=== PATIENT | male | born 1990 | race Caucasian/White ===

== ENCOUNTER 2018-09-25 05:59 | Day surgery (SDC) | payer BC ==
--- NOTE | 2018-09-24 14:59 | PCM.PREANE ---
Preanesthetic Assessment - Anesthesia/Transfusion/Family Hx Anesthesia History: Prior Anesthesia Without Reaction Family History of Anesthesia Reaction: No Transfusion History: No Prior Transfusion(s) Intubation History: Unknown - Review of Systems General: No Symptoms Pulmonary: No Symptoms (Chewing tobacco on occasion/ETOH on occasion/None smoker ) Cardiovascular: No Symptoms Gastrointestinal: No Symptoms Neurological: No Symptoms Other: Reports: None - Physical Assessment NPO Status Date: 09/24/18 NPO Status Time: 21:00 Pulse: 91 O2 Sat by Pulse Oximetry: 96 Respiratory Rate: 16 Blood Pressure: 140/94 Temperature: 36.3 C Height: 1.73 m Weight: 105 kg ASA Class: 2 Mental Status: Alert & Oriented x3 Airway Class: Mallampati = 3 Dentition: Reports: Normal Dentition, Caries Thyro-Mental Finger Breadths: 3 Mouth Opening Finger Breadths: 3 ROM/Head Extension: Full Lungs: Clear to Auscultation, Normal Respiratory Effort Cardiovascular: Regular Rate, Regular Rhythm, No Murmurs - Lab Values: MRSA negative. All labs reviewed and noted and within acceptable ranges to proceed with scheduled procedure. - Allergies Allergies/Adverse Reactions: Allergies Allergy/AdvReac Type Severity Reaction Status Date / Time No Known Allergies Allergy Verified 09/24/18 13:35 - Anesthesia Plan Pre-Op Medication Ordered: None - Acknowledgements Anesthesia Type Planned: General Anesthesia (Right ISB under US guidance for post operative pain control requested by Dr. Bolanos.) Pt an Appropriate Candidate for the Planned Anesthesia: Yes Alternatives and Risks of Anesthesia Discussed w Pt/Guardian: Yes Pt/Guardian Understands and Agrees with Anesthesia Plan: Yes PreAnesthesia Questionnaire HEENT History: Reports: Other (See Below) Other HEENT History: oral surgery Cardiovascular History: Reports: None Respiratory History: Reports: None Gastrointestinal History: Reports: None Genitourinary History: Reports: None WIND OPERATIONS MANAGER History: Reports: None Musculoskeletal History: Reports: Other (See Below) Other Musculoskeletal History: lumbar strain, right index finger skin graft Neurological History: Reports: None Psychiatric History: Reports: None Endocrine/Metabolic History: Reports: None Hematologic History: Reports: None Immunologic History: Reports: None Oncologic (Cancer) History: Reports: None Dermatologic History: Reports: Other (See Below) Other Dermatologic History: skin transplantation - Past Surgical History Head Surgeries/Procedures: Reports: None Cardiovascular Surgical History: Reports: None Respiratory Surgical History: Reports: None GI Surgical History: Reports: None Female Surgical History: Reports: None Male Surgical History: Reports: None Endocrine Surgical History: Reports: None Neurological Surgical History: Reports: None Musculoskeletal Surgical History: Reports: None Oncologic Surgical History: Reports: None - SUBSTANCE USE Smoking Status *Q: Current Every Day Smoker Tobacco Use Within Last Twelve Months: Snuff/Dip Recreational Drug Use History: No - HOME MEDS Home Medications: Home Meds Acetaminophen/HYDROcodone [Crook 325-5 MG] 1 - 2 tab PO Q6H PRN #40 tablet 09/25 [Rx] Cyclobenzaprine [Flexeril] 10 mg PO Q8H PRN #40 tab 09/25/18 [Rx] - CURRENT (IN HOUSE) MEDS Current Meds: Current Medications Epinephrine HCl (Adrenalin) 3 mg .XX ONETIME ONE Stop: 09/25/18 08:01 Lactated Ringer's (Ringers, Lactated) 1,000 mls @ 125 mls/hr IV ASDIRECTED LUIS Stop: 09/25/18 23:00 Lidocaine/Sodium Bicarbonate (Buffered Lidocaine 1% In Ns 8.4%) 0.25 ml IDERM ONETIME PRN PRN Reason: Prior to IV Start Stop: 09/25/18 18:00 Sodium Chloride (Saline Flush) 10 ml FLUSH ASDIRECTED PRN PRN Reason: Keep Vein Open Stop: 09/25/18 18:00
[~2018-09-25 05:59] MED LIST: EPINEPHrine 1 MG/ML SDV ONE; Lidocaine 1% 4 ML ONE; Ropivacaine 0.5% 5 MG/ML 30 ML SDV ONE
[2018-09-25] MEDS ORDERED: Ketorolac 30 MG/ML SDV ONE (06:18)
[2018-09-25] MEDS ORDERED: Rocuronium 50 MG/5 ML Vial ONE (06:18)
[2018-09-25] MEDS ORDERED: Dexamethasone 4 MG/ML 5 ML MDV ONE (06:18)
[2018-09-25] MEDS ORDERED: Ondansetron 4 MG/2 ML SDV ONE (06:18)
[2018-09-25] MEDS ORDERED: Propofol 200 MG/20 ML SDV ONE ×2 (06:18→07:30)
[2018-09-25] MEDS ORDERED: Lactated Ringers 1,000 ML ONE (06:18)
[2018-09-25] MEDS ORDERED: Lidocaine 1% 6 ML ONE (06:18)
[2018-09-25] MEDS ORDERED: ceFAZolin 1 GM Vial ONE (06:18)
[2018-09-25] MEDS ORDERED: Midazolam 1 MG/ML 2 ML SDV ONE (06:19)
[2018-09-25] MEDS ORDERED: fentaNYL 250 MCG/5 ML SDV ONE (06:19)
[2018-09-25] MEDS ORDERED: Albuterol 0.083% 2.5 MG/3 ML Neb Soln NEB PRN ×2 (06:44→07:54)
[2018-09-25] MEDS ORDERED: Lactated Ringers 1,000 ML IV SCH (07:00)
[2018-09-25] MEDS ORDERED: Lidocaine 1%/Sod Bicarbonate in NS 8.4% 1 ML Syringe IDERM PRN (07:00)
[2018-09-25] MEDS ORDERED: Sodium Chloride 0.9% 10 ML Syringe FLUSH PRN (07:00)
--- NOTE | 2018-09-25 07:15 | PCM.SN ---
- Free Text/Narrative Note: Anesthesia Note: (Right Interscalene Block Note) Date: 09/25/2018 Time Out: 644 Start: 644 Stop: 705 Surgical Procedure: Right SVA with biceps tenodesis Diagnosis Right shoulder SLAP tear Current Procedure: Right interscalene block under US guidance for postoperative pain control requested by Dr. Bolanos. Patient chart reviewed, risk/benefits discussed with patient, consent obtained. Patient positioned supine, monitors/alarms on, oxygen placed via nasal cannula at 2 LPM. IV sedation administered: Versed 2mg IV, Fentanyl 50mcg IV given in prior to block placement. Right shoulder prepped with two chloropreps. Sterile drapes placed with aseptic technique noted. Under US guidance, right subclavian artery visualized along with the right brachial plexus. Plexus followed up to C6 cricoid level, and area localized with 2mls of 1% lidocaine. 22gauge 2 inch stimiplex needle advanced under US with 0.6mV with stimulation of biceps noted. Good stimulation noted with decreased voltage and absent at 0.2mVs. 1ml of Normal Saline injected with loss of stimulation noted to confirm needle not placed intraneurally. Incremental dosing of 5mls with negative aspiration noted prior to each injection of 0.5% ropivacaine with 1:200,000 epinephrine. Total volume=30mls. Please refer to nurses noted for vital signs. Michelle Ventura CRNA
[2018-09-25] MEDS ORDERED: ePHEDrine 50 MG/ML SDV IVPUSH PRN (07:54)
[2018-09-25] MEDS ORDERED: HYDROmorphone 0.5 MG/0.5 ML Syringe IVPUSH PRN (07:54)
[2018-09-25] MEDS ORDERED: fentaNYL 100 MCG/2 ML SDV IVPUSH PRN (07:54)
[2018-09-25] MEDS ORDERED: Ondansetron 4 MG/2 ML SDV IVPUSH PRN (07:54)
[2018-09-25] MEDS ORDERED: diphenhydrAMINE 50 MG/ML SDV IVPUSH PRN (07:54)
[2018-09-25] MEDS ORDERED: EPINEPHrine 1 MG/ML 30 ML MDV ONE (08:00)
[2018-09-25] MEDS ORDERED: Phenylephrine 1 MG in Sodium Chloride 0.9% 10 ML IV SCH (08:00)
[2018-09-25] MEDS ORDERED: Neostigmine Methylsulfate 1 MG/ML 5 ML Syringe ONE (08:24)
--- NOTE | 2018-09-25 08:49 | PCM.POSTAN ---
POST ANESTHESIA ASSESSMENT - MENTAL STATUS Mental Status: Alert - VITAL SIGNS Pulse Rate: 96 SaO2: 95 (2LPM nasal cannula) Resp Rate: 20 Blood Pressure: 135/67 Temperature: 36.4 C - RESPIRATORY Respiratory Status: Respiratory Rate WNL, Airway Patent, O2 Saturation Stable, Supplemental Oxygen - CARDIOVASCULAR CV Status: Pulse Rate WNL, Blood Pressure Stable - GASTROINTESTINAL GI Status: No Symptoms - POST OP HYDRATION Hydration Status: Adequate & Stable
--- NOTE | 2018-09-25 09:20 | PCM.OPNOTE ---
- General Post-Op/Procedure Note Date of Surgery/Procedure: 09/25/18 Operative Procedure(s): right shoulder video arthroscopy with biceps tenodesis and extensive debridement Pre Op Diagnosis: right shoulder bicipital tendonitis and bursitis Post-Op Diagnosis: Same Anesthesia Technique: General ET Tube, Regional Block Primary Surgeon: Octavio Bolanos Anesthesia Provider: Michelle Ventura Commercial Glazier: Yakelin Briceno EBL in mLs: 5 Complications: None Condition: Good Free Text/Narrative:: Intake & Output 09/24/18 09/25/18 09/25/18 22:59 06:59 14:59 Intake Total 400 Balance 400
--- NOTE | 2018-09-25 09:41 | OR ---
DATE OF OPERATION: 09/25/2018 SURGEON: Octavio Bolanos MD OPERATION PERFORMED: Right shoulder video arthroscopy with arthroscopic biceps tenodesis and extensive debridement. PREOPERATIVE DIAGNOSIS: Right shoulder bicipital tendinitis and bursitis. POSTOPERATIVE DIAGNOSIS: Right shoulder bicipital tendinitis and bursitis. ANESTHESIA: General endotracheal intubation with regional interscalene block. ANESTHESIA PROVIDER: Michelle Ventura CRNA. TREE FRUIT AND NUT CROPS FARMER: Yakelin Briceno PA-C. ESTIMATED BLOOD LOSS: Less than 5 mL. COMPLICATIONS: None. CONDITION: Stable. DESCRIPTION OF PROCEDURE: The patient was identified in the preop holding area where proper site was marked and identified by the surgeon. The patient was taken back to the operating theater, where after adequate anesthesia, the patient was placed in the left lazy lateral decubitus position. A wedge was placed posteriorly. All bony prominences were well padded. The patient was secured to the table. At this time, right upper extremity was then sterilely prepped and draped in the usual sterile fashion. OR time-out was performed. The patient received 2 g of IV Ancef. At this time, 12 pounds of traction was applied to the right upper extremity. Standard posterior incision was made. Scope trocar was introduced into the glenohumeral joint at this time. With the use of an outside-in technique with a spinal needle, an anterior portal was also created. The glenohumeral joint showed no signs of chondromalacia. The undersurface of the rotator cuff had no erythema nor any sort of tear. Subscapularis tendon was intact. The bicipital tendon showed significant erythema as well as erythema in the groove. The superior labrum was well attached. The anterior labrum was well attached with no signs of pathology. At this time, a spinal needle was used for placement of a #2 FiberWire through the rotator interval into the bicipital tendon and then a tenotomy was performed for later tenodesis in the rotator interval for soft tissue tenodesis. At this time, once this was completed, attention was turned to the subacromial space. The patient was noted to have significant bursitis with significant bursal tissue in the subacromial space. So, at this time, I performed extensive debridement of the subacromial space. The 2 limbs of the FiberWire were then identified in the rotator interval and were tied arthroscopically. The suture limbs were then cut. The rotator cuff was found to be intact with no other signs of pathology at this time. There was no CA ligament fraying either. Excess saline was drained from the shoulder. A 3-0 nylon suture was used for closure of the skin. The patient was placed in a sterile soft dressing and a pillow sling and sent to PACU in stable condition. YA /[id number]
--- NOTE | 2018-09-25 11:51 | PCM48HPAN ---
Post Anesthesia Note - EVALUATION WITHIN 48HRS OF ANESTHETIC Vital Signs in Normal Range: Yes Patient Participated in Evaluation: Yes Respiratory Function Stable: Yes Airway Patent: Yes Cardiovascular Function Stable: Yes Hydration Status Stable: Yes Pain Control Satisfactory: Yes Nausea and Vomiting Control Satisfactory: Yes Mental Status Recovered: Yes
== END 2018-09-25 10:32 | disposition home or self-care (01) ==
LOC: JD.SDS 05:59
PROVIDERS: ATTEND Orthopaedic Surgery
DX: M75.21 Bicipital tendinitis, right shoulder (principal); M75.51 Bursitis of right shoulder; F17.220 Nicotine dependence, chewing tobacco, uncomplicated
CPT/HCPCS: 29823; 29828; 64415; 94640; C1713; J0171; J0690; J1100; J1885; J2001; J2250; J2405; J2704; J2710; J2795; J3010; J7120; 01630